=== PATIENT | male | born 1945 | race Caucasian/White ===

== ENCOUNTER → 2022-01-08 | Outpatient (CLI) | payer MEDICARE ==
[~2022-01-08] MED LIST: ASPIRIN 81M81 MG/TA2 PO; CALCIUM; FIBER0.52 GM PO; FISH OIL500 MG PO; FLAX OIL1000 MG; MICARDIS40 MG PO; MVI
== END ==
LOC: COL.RAD 10:41
DX: C90.00 Multiple myeloma not having achieved remission (principal)